=== PATIENT | female | born 1970 | race Caucasian/White ===

== ENCOUNTER 2020-05-18 07:56 | Day surgery (SDC) | payer OTHER ==
[~2020-05-18 07:56] MED LIST: ASPIR 8181 MG PO; AVAPRO150 MG PO; EFFEXOR XR150 MG PO; FOLIC ACID20 MG PO; LIPITOR20 MG PO; MULTI VITAMIN1 EACH PO; TOVIAZ8 MG PO
[2020-05-18] MEDS ORDERED: MACROBID 100 M100 MG PO (14:45)
[2020-05-18] MEDS ORDERED: ULTRACET PO (14:46)
== END 2020-05-18 19:30 | disposition home or self-care (01) ==
LOC: CIR.AMB 07:56 → ADM 10:15 → CIR.AMB 10:15
PROVIDERS: ATTEND Obstetrics & Gynecology Gynecology
DX: N39.3 Stress incontinence (female) (male) (principal); Z20.828 Contact with and (suspected) exposure to other viral communicable diseases
CPT/HCPCS: 57288; C1771